=== PATIENT | male | born 1935 | race Caucasian/White ===

== ENCOUNTER 2017-11-04 14:18 | Inpatient (IN) | payer MEDICARE, BC ==
[~2017-11-04] VITALS: Ht 177.8 cm; Wt 77.4 kg
[~2017-11-04 14:18] MED LIST: AMLO2.5T2 PO; ASCO500C15 PO; CALC-793 PO; CALC-854 PO; CARV-50 PO; COU5T PO; FURO40TA4 PO; HUM7525 SQ; LECI518C PO; MAGN500C16 PO; MECO0.5P PO; MULT-933 PO; NIA500ERT PO; OMEG1CAP PO; PRED5TAB49 PO; SELE200C PO; TACR1CAP PO; TACR1CAP28 PO; TAUR100P PO; TERA1CAP4 PO; UBIQ100C3 PO; ZINC1POW PO; vitamin b-1 PO
[2017-11-04] MEDS ORDERED: HYDROcodone/acetaminophen 5mg/325mg tablet PO ONE (16:00)
[2017-11-04] MEDS ORDERED: SACU1TAB PO (17:57)
[2017-11-04] MEDS ORDERED: FURO-150 PO (17:57)
[2017-11-04 18:15] LABS: BASOPHILS % (AUTO) 0.1 % (0-1); EOSINOPHILS # (AUTO) 0.3 X10'3 (0-0.9); EOSINOPHILS % (AUTO) 2.6 % (0-6); HEMATOCRIT 37.9 % (42.0-52.0); HEMOGLOBIN 12.5 g/dl (14.0-17.9); LYMPHOCYTES % (AUTO) 8.4 % (21-51); MEAN CORPUSCULAR HEMOGLOBIN 29.7 PG (27.0-31.0); MEAN CORPUSCULAR HGB CONC 33.1 % (33.0-36.5); MEAN CORPUSCULAR VOLUME 89.8 FL (78-98); MEAN PLATELET VOLUME 9.5 FL (7.4-10.4); MONOCYTES # (AUTO) 0.5 X10'3 (0-0.9); MONOCYTES % (AUTO) 4.4 % (2-12); NEUTROPHILS # (AUTO) 9.7 X10'3 (1.8-7.7); NEUTROPHILS % (AUTO) 84.5 % (42-75); RED BLOOD COUNT 4.21 X10'6 (4.70-6.10); RED CELL DISTRIBUTION WIDTH 17.4 % (11.5-14.5); WHITE BLOOD COUNT 11.5 X10'3 (4.5-11.0)
[2017-11-04 18:23] LABS: INR 1.5 INR; PROTHROMBIN TIME 15.8 SECONDS (9.0-12.0)
[2017-11-04 18:35] LABS: PLATELET COUNT 72 X10'3 (140-440)
[2017-11-04 18:37] LABS: ALANINE AMINOTRANSFERASE 20 U/L (12-78); ALBUMIN 3.4 G/DL (3.4-5.0); ALBUMIN/GLOBULIN RATIO 1.1 (1.1-1.5); ALKALINE PHOSPHATASE 58 IU/L (46-116); ANION GAP 11 (8-16); ASPARTATE AMINO TRANSFERASE 14 U/L (10-37); BILIRUBIN,TOTAL 0.7 MG/DL (0.1-1.0); BLOOD UREA NITROGEN 53 MG/DL (7-18); BUN/CREATININE RATIO 19.2 (5.4-32.0); CALCIUM 10.2 MG/DL (8.5-10.1); CHLORIDE 102 MMOL/L (99-107); CREATININE 2.76 MG/DL (0.60-1.10); GLUCOSE 190 MG/DL (70-104); SODIUM 138 MMOL/L (135-145); TOTAL CARBON DIOXIDE 24.6 MMOL/L (24-32); TOTAL PROTEIN 6.6 G/DL (6.4-8.2); eGFR 22 ML/MIN
[2017-11-04] MEDS ORDERED: ondansetron/PF 4mg/2ml inj IV PRN (19:45)
[2017-11-04] MEDS ORDERED: diphenhydrAMINE 25mg capsule PO PRN (19:45)
[2017-11-04] MEDS: docusate sod 100mg capsule PO SCH (20:12)
[2017-11-04] MEDS: carVEDilol 12.5mg tablet PO SCH (20:12)
[2017-11-04] MEDS ORDERED: sacubitril/valsartan 24mg-26mg tablet PO ONE (20:40)
[2017-11-04] MEDS ORDERED: warfarin 5mg tablet PO ONE (20:40)
[2017-11-04] MEDS ORDERED: non-formulary drug (Magnesium Oxide (Magnesium) 400 MG) PO SCH (21:00)
[2017-11-04] MEDS ORDERED: TAURINE PO SCH (21:00)
[2017-11-04] MEDS: tacrolimus anhydrous 1mg capsule PO SCH (21:21)
[2017-11-04] MEDS: magnesium oxide 400mg tablet PO SCH (21:21)
[2017-11-04] MEDS: Terazosin 1mg capsule PO SCH (21:21)
[2017-11-04] MEDS: niacin 500mg ER (Niaspan) tablet PO SCH (21:22)
[2017-11-04 23:21] VITALS: BP 135/97
[2017-11-04] MEDS ORDERED: dextrose ORAL solution 15 GM/59 ML bottle PO PRN ×2 (23:45)
[2017-11-04] MEDS ORDERED: insulin Lispro (HumaLOG) vial - multi-dose SQ ONE (23:45)
[2017-11-04] MEDS ORDERED: glucagon, human recombinant 1mg kit SUBCUT PRN (23:45)
[2017-11-04] MEDS ORDERED: dextrose 50%-water 50ml dispensing syringe IV PRN ×2 (23:45)
[2017-11-05] MEDS ORDERED: CALCIUM CITRATE PO SCH
[2017-11-05] MEDS ORDERED: insulin Lispro (HumaLOG) vial - multi-dose SQ ONE (00:08)
[2017-11-05 06:00] VITALS: BP 114/75
[2017-11-05 06:09] LABS: BASOPHILS % (AUTO) 0.3 % (0-1); EOSINOPHILS # (AUTO) 0.3 X10'3 (0-0.9); EOSINOPHILS % (AUTO) 3.1 % (0-6); HEMATOCRIT 33.9 % (42.0-52.0); HEMOGLOBIN 11.3 g/dl (14.0-17.9); LYMPHOCYTES # (AUTO) 1.5 X10'3 (1.1-4.8); LYMPHOCYTES % (AUTO) 16.5 % (21-51); MEAN CORPUSCULAR HEMOGLOBIN 29.6 PG (27.0-31.0); MEAN CORPUSCULAR HGB CONC 33.4 % (33.0-36.5); MEAN CORPUSCULAR VOLUME 88.6 FL (78-98); MONOCYTES # (AUTO) 0.6 X10'3 (0-0.9); MONOCYTES % (AUTO) 6.7 % (2-12); NEUTROPHILS # (AUTO) 6.4 X10'3 (1.8-7.7); NEUTROPHILS % (AUTO) 73.4 % (42-75); PLATELET COUNT 64 X10'3 (140-440); RED BLOOD COUNT 3.82 X10'6 (4.70-6.10); RED CELL DISTRIBUTION WIDTH 17.3 % (11.5-14.5); WHITE BLOOD COUNT 8.8 X10'3 (4.5-11.0)
[2017-11-05 06:15] LABS: INR 1.7 INR; PARTIAL THROMBOPLASTIN TIME 36 SECONDS (22-32); PROTHROMBIN TIME 17.4 SECONDS (9.0-12.0)
[2017-11-05 06:26] LABS: ALANINE AMINOTRANSFERASE 15 U/L (12-78); ALBUMIN 2.9 G/DL (3.4-5.0); ALKALINE PHOSPHATASE 49 IU/L (46-116); ANION GAP 7 (8-16); ASPARTATE AMINO TRANSFERASE 12 U/L (10-37); BILIRUBIN,TOTAL 0.7 MG/DL (0.1-1.0); BLOOD UREA NITROGEN 53 MG/DL (7-18); BUN/CREATININE RATIO 19.5 (5.4-32.0); CHLORIDE 105 MMOL/L (99-107); CREATININE 2.72 MG/DL (0.60-1.10); GLUCOSE 112 MG/DL (70-104); MAGNESIUM 2.4 MG/DL (1.5-2.4); POTASSIUM 4.8 MMOL/L (3.5-5.1); SODIUM 139 MMOL/L (135-145); TOTAL CARBON DIOXIDE 26.7 MMOL/L (24-32); TOTAL PROTEIN 5.9 G/DL (6.4-8.2); eGFR 23 ML/MIN
[2017-11-05] MEDS ORDERED: MULTIVITAMIN PO SCH (08:00)
[2017-11-05] MEDS ORDERED: warfarin 5mg tablet PO SCH (08:00)
[2017-11-05] MEDS ORDERED: non-formulary drug (Ascorbic Acid (Vitamin C) 1 CAP) PO SCH (08:00)
[2017-11-05] MEDS: sacubitril/valsartan 24mg-26mg tablet PO SCH (08:00)
[2017-11-05] MEDS ORDERED: VITAMIN B1 100 MG PO SCH (08:00)
[2017-11-05] MEDS ORDERED: LECITHIN PO SCH (08:00)
[2017-11-05] MEDS ORDERED: CALCIUM CARBONATE PO SCH (08:00)
[2017-11-05] MEDS ORDERED: MECOBALAMIN 5000 MCG PO SCH (08:00)
[2017-11-05] MEDS ORDERED: PREDNISONE 5 MG PO SCH (08:00)
[2017-11-05] MEDS ORDERED: non-formulary drug (Ubiquinol 100 MG) PO SCH (08:00)
[2017-11-05] MEDS: amLODIPine 2.5mg tablet PO SCH (08:00)
[2017-11-05] MEDS: carVEDilol 12.5mg tablet PO SCH ×2 (08:00→19:23)
[2017-11-05] MEDS ORDERED: VITAMIN D3 PO SCH ×2 (08:00)
[2017-11-05] MEDS ORDERED: ZINC CITRATE PO SCH (08:00)
[2017-11-05] MEDS: tacrolimus anhydrous 1mg capsule PO SCH ×2 (09:03→19:26)
[2017-11-05] MEDS: ascorbic acid 500mg tablet PO SCH (09:03)
[2017-11-05] MEDS: multivitamins, therapeutics tablet PO SCH (09:03)
[2017-11-05] MEDS: thiamine 100mg tablet PO SCH (09:03)
[2017-11-05] MEDS: omega-3 acid ethyl esters 1GM capsule PO SCH (09:04)
[2017-11-05] MEDS: calcium carbonate/vitamin D3 tablet PO SCH (09:04)
[2017-11-05] MEDS: furosemide 20MG tablet PO SCH (09:04)
[2017-11-05] MEDS: docusate sod 100mg capsule PO SCH ×2 (09:04→19:23)
[2017-11-05] MEDS: insulin Lispro (HumaLOG) vial - multi-dose SQ SCH ×3 (09:19→19:30)
[2017-11-05 10:46] VITALS: BP 84/55
[2017-11-05] MEDS: predniSONE 5mg tablet PO SCH (11:38)
[2017-11-05] MEDS ORDERED: ALBU8.5H8 INH (11:53)
[2017-11-05] MEDS ORDERED: CEFU500T66 PO (14:32)
[2017-11-05 18:00] VITALS: BP 118/74
[2017-11-05] MEDS: magnesium oxide 400mg tablet PO SCH (19:32)
[2017-11-05 22:00] VITALS: BP 136/85
[2017-11-05] MEDS: Terazosin 1mg capsule PO SCH (22:10)
[2017-11-05] MEDS: warfarin 5mg tablet PO SCH (22:11)
[2017-11-05] MEDS: HYDROcodone/acetaminophen 5mg/325mg tablet PO PRN (22:15)
[2017-11-05] MEDS: niacin 500mg ER (Niaspan) tablet PO SCH (22:15)
[2017-11-06 05:39] LABS: BASOPHILS % (AUTO) 0.2 % (0-1); EOSINOPHILS # (AUTO) 0.2 X10'3 (0-0.9); EOSINOPHILS % (AUTO) 2.4 % (0-6); HEMATOCRIT 32.7 % (42.0-52.0); LYMPHOCYTES # (AUTO) 1.4 X10'3 (1.1-4.8); LYMPHOCYTES % (AUTO) 17.2 % (21-51); MEAN CORPUSCULAR HEMOGLOBIN 29.5 PG (27.0-31.0); MEAN CORPUSCULAR HGB CONC 33.7 % (33.0-36.5); MEAN CORPUSCULAR VOLUME 87.4 FL (78-98); MEAN PLATELET VOLUME 8.7 FL (7.4-10.4); MONOCYTES # (AUTO) 0.5 X10'3 (0-0.9); NEUTROPHILS # (AUTO) 6.1 X10'3 (1.8-7.7); NEUTROPHILS % (AUTO) 74.2 % (42-75); PLATELET COUNT 64 X10'3 (140-440); RED BLOOD COUNT 3.74 X10'6 (4.70-6.10); RED CELL DISTRIBUTION WIDTH 17.4 % (11.5-14.5); WHITE BLOOD COUNT 8.3 X10'3 (4.5-11.0)
[2017-11-06 06:00] VITALS: BP 113/72
[2017-11-06 06:13] LABS: INR 1.5 INR; PARTIAL THROMBOPLASTIN TIME 39 SECONDS (22-32); PROTHROMBIN TIME 15.7 SECONDS (9.0-12.0)
[2017-11-06 06:18] LABS: ALANINE AMINOTRANSFERASE 15 U/L (12-78); ALBUMIN 2.7 G/DL (3.4-5.0); ALBUMIN/GLOBULIN RATIO 0.9 (1.1-1.5); ALKALINE PHOSPHATASE 37 IU/L (46-116); ANION GAP 8 (8-16); ASPARTATE AMINO TRANSFERASE 13 U/L (10-37); BLOOD UREA NITROGEN 61 MG/DL (7-18); BUN/CREATININE RATIO 21.9 (5.4-32.0); CALCIUM 9.6 MG/DL (8.5-10.1); CHLORIDE 101 MMOL/L (99-107); CREATININE 2.78 MG/DL (0.60-1.10); GLUCOSE 102 MG/DL (70-104); MAGNESIUM 2.3 MG/DL (1.5-2.4); POTASSIUM 4.9 MMOL/L (3.5-5.1); SODIUM 136 MMOL/L (135-145); TOTAL CARBON DIOXIDE 26.6 MMOL/L (24-32); TOTAL PROTEIN 5.8 G/DL (6.4-8.2); eGFR 22 ML/MIN
[2017-11-06] MEDS: furosemide 20MG tablet PO SCH (08:00)
[2017-11-06] MEDS: amLODIPine 2.5mg tablet PO SCH (08:00)
[2017-11-06] MEDS: sacubitril/valsartan 24mg-26mg tablet PO SCH (08:00)
[2017-11-06] MEDS: carVEDilol 12.5mg tablet PO SCH ×2 (08:00→21:45)
[2017-11-06] MEDS: insulin Lispro (HumaLOG) vial - multi-dose SQ SCH ×3 (08:42→19:40)
[2017-11-06] MEDS: multivitamins, therapeutics tablet PO SCH (08:43)
[2017-11-06] MEDS: ascorbic acid 500mg tablet PO SCH (08:44)
[2017-11-06] MEDS: thiamine 100mg tablet PO SCH (08:44)
[2017-11-06] MEDS: calcium carbonate/vitamin D3 tablet PO SCH (08:44)
[2017-11-06] MEDS: docusate sod 100mg capsule PO SCH ×2 (08:44→21:44)
[2017-11-06] MEDS: omega-3 acid ethyl esters 1GM capsule PO SCH (08:44)
[2017-11-06 08:45] VITALS: BP 70/43
[2017-11-06] MEDS: tacrolimus anhydrous 1mg capsule PO SCH ×2 (08:45→21:45)
[2017-11-06] MEDS: predniSONE 5mg tablet PO SCH (08:45)
[2017-11-06] MEDS ORDERED: albumin (Human) 5% 250 ML IV solution IV STA (09:01)
[2017-11-06 10:00] VITALS: BP 89/55
[2017-11-06 10:29] VITALS: BP 105/73
[2017-11-06 18:00] VITALS: BP 111/72
[2017-11-06] MEDS: Terazosin 1mg capsule PO SCH (21:44)
[2017-11-06] MEDS: warfarin 5mg tablet PO SCH (21:44)
[2017-11-06] MEDS: niacin 500mg ER (Niaspan) tablet PO SCH (21:44)
[2017-11-06] MEDS: magnesium oxide 400mg tablet PO SCH (21:44)
[2017-11-06 22:00] VITALS: BP 109/72
[2017-11-07] VITALS (7 sets, daily range): BP systolic 77–122; BP diastolic 47–87
[2017-11-07 05:52] LABS: BASOPHILS % (AUTO) 0.1 % (0-1); EOSINOPHILS # (AUTO) 0.3 X10'3 (0-0.9); EOSINOPHILS % (AUTO) 3.6 % (0-6); HEMATOCRIT 33.8 % (42.0-52.0); HEMOGLOBIN 11.3 g/dl (14.0-17.9); LYMPHOCYTES # (AUTO) 1.4 X10'3 (1.1-4.8); LYMPHOCYTES % (AUTO) 17.8 % (21-51); MEAN CORPUSCULAR HEMOGLOBIN 29.3 PG (27.0-31.0); MEAN CORPUSCULAR HGB CONC 33.4 % (33.0-36.5); MEAN CORPUSCULAR VOLUME 87.9 FL (78-98); MEAN PLATELET VOLUME 8.8 FL (7.4-10.4); MONOCYTES # (AUTO) 0.5 X10'3 (0-0.9); MONOCYTES % (AUTO) 6.8 % (2-12); NEUTROPHILS # (AUTO) 5.8 X10'3 (1.8-7.7); NEUTROPHILS % (AUTO) 71.7 % (42-75); PLATELET COUNT 61 X10'3 (140-440); RED BLOOD COUNT 3.84 X10'6 (4.70-6.10); RED CELL DISTRIBUTION WIDTH 16.9 % (11.5-14.5)
[2017-11-07 06:19] LABS: INR 1.5 INR; PARTIAL THROMBOPLASTIN TIME 37 SECONDS (22-32)
[2017-11-07 06:29] LABS: ALANINE AMINOTRANSFERASE 16 U/L (12-78); ALKALINE PHOSPHATASE 50 IU/L (46-116); ANION GAP 8 (8-16); ASPARTATE AMINO TRANSFERASE 10 U/L (10-37); BILIRUBIN,TOTAL 0.7 MG/DL (0.1-1.0); BLOOD UREA NITROGEN 63 MG/DL (7-18); BUN/CREATININE RATIO 22.7 (5.4-32.0); CALCIUM 9.6 MG/DL (8.5-10.1); CHLORIDE 99 MMOL/L (99-107); CREATININE 2.78 MG/DL (0.60-1.10); GLUCOSE 126 MG/DL (70-104); MAGNESIUM 2.3 MG/DL (1.5-2.4); SODIUM 133 MMOL/L (135-145); TOTAL CARBON DIOXIDE 26.4 MMOL/L (24-32); eGFR 22 ML/MIN
[2017-11-07] MEDS: omega-3 acid ethyl esters 1GM capsule PO SCH (08:38)
[2017-11-07] MEDS: calcium carbonate/vitamin D3 tablet PO SCH (08:38)
[2017-11-07] MEDS: docusate sod 100mg capsule PO SCH ×2 (08:38→20:44)
[2017-11-07] MEDS: multivitamins, therapeutics tablet PO SCH (08:38)
[2017-11-07] MEDS: ascorbic acid 500mg tablet PO SCH (08:38)
[2017-11-07] MEDS: tacrolimus anhydrous 1mg capsule PO SCH ×2 (08:38→20:45)
[2017-11-07] MEDS: thiamine 100mg tablet PO SCH (08:38)
[2017-11-07] MEDS: sacubitril/valsartan 24mg-26mg tablet PO SCH (08:40)
[2017-11-07] MEDS: carVEDilol 12.5mg tablet PO SCH ×2 (08:40→20:00)
[2017-11-07] MEDS: amLODIPine 2.5mg tablet PO SCH (08:40)
[2017-11-07] MEDS: furosemide 20MG tablet PO SCH (08:40)
[2017-11-07] MEDS: predniSONE 5mg tablet PO SCH (08:42)
[2017-11-07] MEDS: insulin Lispro (HumaLOG) vial - multi-dose SQ SCH ×3 (08:48→19:12)
[2017-11-07] MEDS ORDERED: morphine 4 MG/ML inj SYRINge IV ONE (16:55)
[2017-11-07 18:06] LABS: D-DIMER 1.98 MG/L FEU (0-0.50)
[2017-11-07 20:20] LABS: ABG BASE EXCESS -1.4 mmol/L (-2.0-3.0); ABG PH (T) 7.454 (7.350-7.450); ABG PO2 (T) 67.6 mmHg (83-108); ALLEN'S TEST Positive; PATIENT TEMPERATURE 36.7; TOTAL HEMOGLOBIN 11.6 G/dl (14.0-18.0)
[2017-11-07 20:21] LABS: ABG OXYGEN SATURATION 94.8 % (95-98); FCOHb 0.9 % (0.5-1.5); FMetHb 0.3 % (0.3-1.12); FO2Hb 93.7 % (94-100)
[2017-11-07] MEDS ORDERED: normal saline 1000ml 1,000 ML IV ONE (20:35)
[2017-11-07] MEDS: magnesium oxide 400mg tablet PO SCH (20:44)
[2017-11-07] MEDS: niacin 500mg ER (Niaspan) tablet PO SCH (20:44)
[2017-11-07] MEDS: Terazosin 1mg capsule PO SCH (20:45)
[2017-11-07] MEDS: warfarin 5mg tablet PO SCH (20:45)
[2017-11-08] VITALS (8 sets, daily range): BP systolic 81–138; BP diastolic 54–98
[2017-11-08 07:14] LABS: BASOPHILS % (AUTO) 0.2 % (0-1); EOSINOPHILS # (AUTO) 0.1 X10'3 (0-0.9); EOSINOPHILS % (AUTO) 1.1 % (0-6); HEMATOCRIT 33.2 % (42.0-52.0); HEMOGLOBIN 10.9 g/dl (14.0-17.9); LYMPHOCYTES # (AUTO) 1.5 X10'3 (1.1-4.8); LYMPHOCYTES % (AUTO) 17.8 % (21-51); MEAN CORPUSCULAR HEMOGLOBIN 29.3 PG (27.0-31.0); MEAN CORPUSCULAR HGB CONC 32.9 % (33.0-36.5); MEAN CORPUSCULAR VOLUME 88.9 FL (78-98); MEAN PLATELET VOLUME 8.8 FL (7.4-10.4); MONOCYTES # (AUTO) 0.8 X10'3 (0-0.9); MONOCYTES % (AUTO) 9.9 % (2-12); NEUTROPHILS # (AUTO) 5.8 X10'3 (1.8-7.7); PLATELET COUNT 70 X10'3 (140-440); RED BLOOD COUNT 3.74 X10'6 (4.70-6.10); RED CELL DISTRIBUTION WIDTH 16.7 % (11.5-14.5); WHITE BLOOD COUNT 8.1 X10'3 (4.5-11.0)
[2017-11-08 07:29] LABS: INR 1.4 INR; PROTHROMBIN TIME 14.4 SECONDS (9.0-12.0)
[2017-11-08 07:39] LABS: ALANINE AMINOTRANSFERASE 14 U/L (12-78); ALBUMIN 2.8 G/DL (3.4-5.0); ALBUMIN/GLOBULIN RATIO 0.9 (1.1-1.5); ALKALINE PHOSPHATASE 39 IU/L (46-116); ANION GAP 9 (8-16); ASPARTATE AMINO TRANSFERASE 11 U/L (10-37); BILIRUBIN,TOTAL 0.9 MG/DL (0.1-1.0); BLOOD UREA NITROGEN 71 MG/DL (7-18); BUN/CREATININE RATIO 22.2 (5.4-32.0); CALCIUM 9.6 MG/DL (8.5-10.1); CHLORIDE 101 MMOL/L (99-107); GLUCOSE 100 MG/DL (70-104); MAGNESIUM 2.2 MG/DL (1.5-2.4); POTASSIUM 5.1 MMOL/L (3.5-5.1); SODIUM 135 MMOL/L (135-145); TOTAL CARBON DIOXIDE 25.1 MMOL/L (24-32); TOTAL PROTEIN 5.9 G/DL (6.4-8.2); eGFR 19 ML/MIN
[2017-11-08] MEDS: sacubitril/valsartan 24mg-26mg tablet PO SCH (07:55)
[2017-11-08] MEDS: carVEDilol 12.5mg tablet PO SCH ×2 (07:55→20:07)
[2017-11-08] MEDS: amLODIPine 2.5mg tablet PO SCH (07:56)
[2017-11-08] MEDS: furosemide 20MG tablet PO SCH (07:56)
[2017-11-08] MEDS: predniSONE 5mg tablet PO SCH (08:05)
[2017-11-08] MEDS: thiamine 100mg tablet PO SCH (08:05)
[2017-11-08] MEDS: omega-3 acid ethyl esters 1GM capsule PO SCH (08:05)
[2017-11-08] MEDS: tacrolimus anhydrous 1mg capsule PO SCH ×2 (08:05→20:06)
[2017-11-08] MEDS: calcium carbonate/vitamin D3 tablet PO SCH (08:05)
[2017-11-08] MEDS: docusate sod 100mg capsule PO SCH ×2 (08:05→20:07)
[2017-11-08] MEDS: ascorbic acid 500mg tablet PO SCH (08:05)
[2017-11-08] MEDS: multivitamins, therapeutics tablet PO SCH (08:05)
[2017-11-08] MEDS: insulin Lispro (HumaLOG) vial - multi-dose SQ SCH ×3 (08:40→20:01)
[2017-11-08] MEDS: normal saline 1000ml 1,000 ML IV SCH (13:10)
[2017-11-08] MEDS: niacin 500mg ER (Niaspan) tablet PO SCH (20:05)
[2017-11-08] MEDS: Terazosin 1mg capsule PO SCH (20:06)
[2017-11-08] MEDS: warfarin 5mg tablet PO SCH (20:06)
[2017-11-08] MEDS: magnesium oxide 400mg tablet PO SCH (20:07)
[2017-11-09 05:32] LABS: BASOPHILS % (AUTO) 0.1 % (0-1); EOSINOPHILS # (AUTO) 0.1 X10'3 (0-0.9); EOSINOPHILS % (AUTO) 1.5 % (0-6); HEMOGLOBIN 9.7 g/dl (14.0-17.9); LYMPHOCYTES # (AUTO) 1.1 X10'3 (1.1-4.8); MEAN CORPUSCULAR HEMOGLOBIN 29.3 PG (27.0-31.0); MEAN CORPUSCULAR HGB CONC 33.5 % (33.0-36.5); MEAN CORPUSCULAR VOLUME 87.4 FL (78-98); MEAN PLATELET VOLUME 8.9 FL (7.4-10.4); MONOCYTES # (AUTO) 0.6 X10'3 (0-0.9); MONOCYTES % (AUTO) 8.5 % (2-12); NEUTROPHILS # (AUTO) 5.1 X10'3 (1.8-7.7); NEUTROPHILS % (AUTO) 73.9 % (42-75); PLATELET COUNT 68 X10'3 (140-440); RED BLOOD COUNT 3.32 X10'6 (4.70-6.10); RED CELL DISTRIBUTION WIDTH 16.4 % (11.5-14.5); WHITE BLOOD COUNT 6.9 X10'3 (4.5-11.0)
[2017-11-09 05:44] LABS: INR 1.4 INR; PROTHROMBIN TIME 14.4 SECONDS (9.0-12.0)
[2017-11-09 05:57] LABS: ALANINE AMINOTRANSFERASE 10 U/L (12-78); ALBUMIN 2.5 G/DL (3.4-5.0); ALBUMIN/GLOBULIN RATIO 0.8 (1.1-1.5); ALKALINE PHOSPHATASE 47 IU/L (46-116); ANION GAP 12 (8-16); ASPARTATE AMINO TRANSFERASE 10 U/L (10-37); BILIRUBIN,TOTAL 0.9 MG/DL (0.1-1.0); BLOOD UREA NITROGEN 60 MG/DL (7-18); BUN/CREATININE RATIO 25.9 (5.4-32.0); CALCIUM 9.4 MG/DL (8.5-10.1); CHLORIDE 99 MMOL/L (99-107); CREATININE 2.32 MG/DL (0.60-1.10); GLUCOSE 119 MG/DL (70-104); MAGNESIUM 2.1 MG/DL (1.5-2.4); POTASSIUM 4.8 MMOL/L (3.5-5.1); SODIUM 131 MMOL/L (135-145); TOTAL PROTEIN 5.5 G/DL (6.4-8.2); eGFR 27 ML/MIN
[2017-11-09 06:00] VITALS: BP 129/87
[2017-11-09] MEDS: HYDROcodone/acetaminophen 5mg/325mg tablet PO PRN (06:53)
[2017-11-09 08:00] VITALS: BP_SYST 121; BP_SYST 127; BP_SYST 99; BP_DIAS 58; BP_DIAS 71; BP_DIAS 72
[2017-11-09] MEDS: amLODIPine 2.5mg tablet PO SCH (08:00)
[2017-11-09] MEDS: carVEDilol 12.5mg tablet PO SCH ×2 (08:02→19:54)
[2017-11-09] MEDS: tacrolimus anhydrous 1mg capsule PO SCH ×2 (08:02→20:57)
[2017-11-09] MEDS: sacubitril/valsartan 24mg-26mg tablet PO SCH (08:02)
[2017-11-09] MEDS: omega-3 acid ethyl esters 1GM capsule PO SCH (08:02)
[2017-11-09] MEDS: predniSONE 5mg tablet PO SCH (08:03)
[2017-11-09] MEDS: docusate sod 100mg capsule PO SCH ×2 (08:03→19:53)
[2017-11-09] MEDS: ascorbic acid 500mg tablet PO SCH (08:03)
[2017-11-09] MEDS: thiamine 100mg tablet PO SCH (08:03)
[2017-11-09] MEDS: multivitamins, therapeutics tablet PO SCH (08:03)
[2017-11-09] MEDS: furosemide 20MG tablet PO SCH (08:03)
[2017-11-09] MEDS: calcium carbonate/vitamin D3 tablet PO SCH (08:03)
[2017-11-09] MEDS: insulin Lispro (HumaLOG) vial - multi-dose SQ SCH ×3 (08:46→19:53)
[2017-11-09] MEDS: normal saline 1000ml 1,000 ML IV SCH (08:50)
[2017-11-09 12:49] VITALS: BP 88/56
[2017-11-09 18:00] VITALS: BP 136/83
[2017-11-09] MEDS: niacin 500mg ER (Niaspan) tablet PO SCH (20:57)
[2017-11-09] MEDS: magnesium oxide 400mg tablet PO SCH (20:57)
[2017-11-09] MEDS: Terazosin 1mg capsule PO SCH (20:58)
[2017-11-09] MEDS: warfarin 5mg tablet PO SCH (20:58)
[2017-11-09 22:22] VITALS: BP 114/75
[2017-11-10 04:50] VITALS: BP_SYST 106; BP_SYST 118; BP_DIAS 67; BP_DIAS 72; BP_DIAS 79
[2017-11-10] MEDS: normal saline 1000ml 1,000 ML IV SCH (04:50)
[2017-11-10 05:44] LABS: INR 1.5 INR; PROTHROMBIN TIME 15.8 SECONDS (9.0-12.0)
[2017-11-10 06:00] VITALS: BP 138/62
[2017-11-10] MEDS: HYDROcodone/acetaminophen 5mg/325mg tablet PO PRN ×2 (06:49→15:00)
[2017-11-10] MEDS: amLODIPine 2.5mg tablet PO SCH (08:00)
[2017-11-10] MEDS: predniSONE 5mg tablet PO SCH (08:45)
[2017-11-10] MEDS: multivitamins, therapeutics tablet PO SCH (08:45)
[2017-11-10] MEDS: sacubitril/valsartan 24mg-26mg tablet PO SCH (08:45)
[2017-11-10] MEDS: docusate sod 100mg capsule PO SCH ×2 (08:45→20:33)
[2017-11-10] MEDS: thiamine 100mg tablet PO SCH (08:45)
[2017-11-10] MEDS: calcium carbonate/vitamin D3 tablet PO SCH (08:45)
[2017-11-10] MEDS: omega-3 acid ethyl esters 1GM capsule PO SCH (08:46)
[2017-11-10] MEDS: ascorbic acid 500mg tablet PO SCH (08:46)
[2017-11-10] MEDS: carVEDilol 12.5mg tablet PO SCH (08:46)
[2017-11-10] MEDS: furosemide 20MG tablet PO SCH (08:46)
[2017-11-10] MEDS: tacrolimus anhydrous 1mg capsule PO SCH ×2 (08:46→20:33)
[2017-11-10 10:00] VITALS: BP 82/52
[2017-11-10] MEDS: insulin Lispro (HumaLOG) vial - multi-dose SQ SCH ×2 (13:40→18:51)
[2017-11-10 18:21] VITALS: BP 90/57
[2017-11-10] MEDS: niacin 500mg ER (Niaspan) tablet PO SCH (20:33)
[2017-11-10] MEDS: magnesium oxide 400mg tablet PO SCH (20:33)
[2017-11-10] MEDS: Terazosin 1mg capsule PO SCH (20:34)
[2017-11-10] MEDS: carVEDilol 3.125mg tablet PO SCH (20:34)
[2017-11-10] MEDS ORDERED: warfarin 4mg tablet PO ONE (21:00)
[2017-11-10 22:00] VITALS: BP 111/75
[2017-11-11] MEDS: HYDROcodone/acetaminophen 5mg/325mg tablet PO PRN (05:34)
[2017-11-11 06:05] LABS: INR 1.7 INR; PROTHROMBIN TIME 17.4 SECONDS (9.0-12.0)
[2017-11-11] MEDS: calcium carbonate/vitamin D3 tablet PO SCH (07:58)
[2017-11-11] MEDS: docusate sod 100mg capsule PO SCH (07:58)
[2017-11-11] MEDS: multivitamins, therapeutics tablet PO SCH (07:58)
[2017-11-11] MEDS: predniSONE 5mg tablet PO SCH (07:58)
[2017-11-11] MEDS: ascorbic acid 500mg tablet PO SCH (07:58)
[2017-11-11] MEDS: omega-3 acid ethyl esters 1GM capsule PO SCH (07:58)
[2017-11-11] MEDS: thiamine 100mg tablet PO SCH (07:58)
[2017-11-11] MEDS: carVEDilol 3.125mg tablet PO SCH (07:59)
[2017-11-11] MEDS ORDERED: furosemide 20MG tablet PO SCH (08:00)
[2017-11-11] MEDS ORDERED: sacubitril/valsartan 24mg-26mg tablet PO SCH (08:00)
[2017-11-11] MEDS: insulin Lispro (HumaLOG) vial - multi-dose SQ SCH (08:59)
[2017-11-11] MEDS: tacrolimus anhydrous 1mg capsule PO SCH (11:09)
[2017-11-11] MEDS ORDERED: warfarin 7.5mg tablet PO ONE (21:00)
[2017-11-13] MEDS ORDERED: CARV3.122 PO (16:52)
[2017-11-13] MEDS ORDERED: CARV25TA PO (17:02)
[2017-11-13] MEDS ORDERED: WARF-55 PO (17:06)
[2017-11-14] MEDS ORDERED: FISH12002 PO (12:51)
[2017-11-14] MEDS ORDERED: CARV3.122 PO (12:54)
[2017-11-14] MEDS ORDERED: TAUR1000 PO (13:02)
[2017-11-14] MEDS ORDERED: CALC-729 PO (13:03)
[2017-11-14] MEDS ORDERED: CHOL10002 PO (13:05)
[2017-11-14] MEDS ORDERED: HYDR-569 PO (13:08)
== END 2017-11-11 13:25 | DRG 543 ==
LOC: ER 14:18 → ED HOLD 19:42 → EDBEDREQ 22:16 → ORTHO 4S 23:00
PROVIDERS: ADMIT Internal Medicine Critical Care Medicine; ATTEND Internal Medicine Critical Care Medicine
DX: M80.851A Other osteoporosis with current pathological fracture, right femur, initial encounter for fracture (principal); N18.4 Chronic kidney disease, stage 4 (severe); E11.22 Type 2 diabetes mellitus with diabetic chronic kidney disease; I48.91 Unspecified atrial fibrillation; I13.0 Hypertensive heart and chronic kidney disease with heart failure and stage 1 through stage 4 chronic kidney disease, or unspecified chronic kidney disease; I50.9 Heart failure, unspecified; Z94.0 Kidney transplant status; W18.39XA Other fall on same level, initial encounter; E78.00 Pure hypercholesterolemia, unspecified; M54.30 Sciatica, unspecified side; Z79.01 Long term (current) use of anticoagulants; Z79.899 Other long term (current) drug therapy; Z91.041 Radiographic dye allergy status; Z88.2 Allergy status to sulfonamides; Z91.048 Other nonmedicinal substance allergy status; S42.031G Displaced fracture of lateral end of right clavicle, subsequent encounter for fracture with delayed healing; Y93.89 Activity, other specified; Y92.89 Other specified places as the place of occurrence of the external cause; Y99.8 Other external cause status
CPT/HCPCS: 36415; 36600; 71045; 72100; 72192; 73030; 73502; 80053; 80197; 82803; 82948; 83036; 83735; 83880; 84484; 85018; 85025; 85379; 85610; 85730; 87070; 93005; 97110; 97116; 97161; 97530; 97535; 99285; A4315; A6209; A6213; J2270; J7030; J7507; J7512; P9045